=== PATIENT | male | born 1945 | race Hispanic/Latino ===

== ENCOUNTER → 2021-08-20 | Outpatient (CLI) | payer MEDICARE ==
[~2021-08-20] MED LIST: GLIP5TAB11 PO; LISI40TA9 PO; METF-444 PO; SIMV10TA97 PO
== END | disposition home or self-care (01) ==
LOC: RAH 15:16
PROVIDERS: ATTEND Family Medicine
DX: M54.9 Dorsalgia, unspecified (principal); I70.0 Atherosclerosis of aorta
CPT/HCPCS: 72100